=== PATIENT | female | born 1980 | race Caucasian/White ===

== ENCOUNTER 2019-01-31 23:13 | Emergency (ER) | payer SELFPAY ==
[2019-02-01] MEDS ORDERED: KETOROLAC TROMETHAMINE INJ 30 MG/ML VIAL IM ONE (00:21)
[2019-02-01] MEDS ORDERED: HYDROcodone 7.5MG/APAP 325MG 1 EA TAB PO ONE (00:21)
[2019-02-01] MEDS ORDERED: ONDANSETRON ODT 8 MG TAB SL ONE (00:22)
[2019-02-01 00:41] VITALS: TEMP 99.2
[2019-02-01 00:52] VITALS: O2SAT 98
[2019-02-01 01:04] VITALS: BP 145/77
--- NOTE | 2019-02-01 01:05 | ED.PDOC ---
History of Present Illness - General Chief Complaint: General Stated Complaint: pain, n/v Time Seen by Provider: 01/31/19 23:15 Source: patient Exam Limitations: no limitations - History of Present Illness Initial Comments: the patient is a 38-year-old female presenting to the emergency room secondary to right flank pain with associated nausea and vomiting. Pain restar amador after the patient had her right ureteral stent removed 2 hours prior. The patient sees Dr. Anton. the pain got severe enough that she had nausea and vomiting with it. She had 3 episodes. No blood and no bile. No fever. Pain is exactly like it was when she had the kidney stone originally. The ureteral stent was in place for 1 week. Lithotripsy was done and that the stent was placed. No dysuria currently. No diarrhea. The patient has not thrown up since arrival. Timing/Duration: 4-6 hours Severity: severe Improving Factors: nothing Worsening Factors: nothing Associated Symptoms: diaphoresis, loss of appetite, nausea/vomiting Allergies/Adverse Reactions: Allergies NO KNOWN ALLERGY Allergy (Verified 02/01/19 00:27) Home Medications: Ambulatory Orders Cephalexin 500 mg PO QID 02/01/19 Oxybutynin Chloride 5 mg PO DAILY 02/01/19 Sulfa/Trimeth 800/160 (Ds) Tab [Bactrim DS] 1 tablet PO DAILY 02/01/19 Tramadol HCl 50 mg PO Q4H PRN 02/01/19 Tramadol HCl 50 mg PO Q8HR PRN #20 tab 02/01/19 Review of Systems - Review of Systems Constitutional: States: no symptoms reported EENTM: States: no symptoms reported Respiratory: States: no symptoms reported Cardiology: States: no symptoms reported Gastrointestinal/Abdominal: States: abdominal pain, nausea, vomiting Genitourinary: States: no symptoms reported Musculoskeletal: States: back pain Skin: States: no symptoms reported Neurological: States: no symptoms reported Endocrine: States: no symptoms reported All other Systems: No Change from Baseline Past Medical History (General) - Patient Medical History Hx Seizures: No Hx Stroke: No Hx Dementia: No Hx Asthma: No Hx of COPD: No Hx Cardiac Disorders: No Hx Congestive Heart Failure: No Hx Pacemaker: No Hx Hypertension: Yes Hx Thyroid Disease: No Hx Diabetes: No Hx Gastroesophageal Reflux: No Hx Renal Disease: No Hx Cancer: No Hx of HIV: No Hx Hepatitis C: No Hx MRSA: No Surgical History: other - Vaccination History Hx Tetanus, Diphtheria Vaccination: Yes Hx Influenza Vaccination: Yes Hx Pneumococcal Vaccination: No - Social History Hx Tobacco Use: Yes Hx Chewing Tobacco Use: No Hx Alcohol Use: Yes - occ Hx Substance Use: No Hx Substance Use Treatment: No Hx Depression: No Hx Physical Abuse: No Hx Emotional Abuse: No Hx Suspected Abuse: No - Female History Patient is a Female of Child Bearing Age (10 -59 yrs old): Yes Patient : No Family Medical History - Family History Mother Living Status: Still Living Hx Family Diabetes: Yes Physical Exam - Physical Exam General Appearance: Alert, Anxious, No apparent distress Eye Exam: bilateral normal Ears, Nose, Throat: hearing grossly normal, normal pharynx Neck: full range of motion, supple Respiratory: lungs clear, normal breath sounds, no respiratory distress, no accessory muscle use Cardiovascular/Chest: normal peripheral pulses, regular rate, rhythm, no edema Peripheral Pulses: radial,right: 2+, radial,left: 2+ Gastrointestinal/Abdominal: soft, other - mild right-sided discomfort palpation. No rebound or peritoneal signs. 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 The patient has responded well to Zofran and Toradol. She'll be written for tramadol for as needed use for the next few days. She needs to increase her fluid intake and ambulate. She can use Motrin or aleve additionally as well. She needs to keep follow-up with her urologist. ER warnings are given for any significant worsening. [email or web address] Departure - Departure Clinical Impression: Colic, ureteral Disposition: Discharge to Home or Self Care Condition: Fair Departure Forms: ED Discharge - Pt. Copy, Patient Portal Self Enrollment Diet: low fat, low cholesterol Activity: increase activity as tolerated Prescriptions: Tramadol HCl 50 mg PO Q8HR PRN #20 tab PRN Reason: Moderate Pain Home Medications: Ambulatory Orders Cephalexin 500 mg PO QID 02/01/19 Oxybutynin Chloride 5 mg PO DAILY 02/01/19 Sulfa/Trimeth 800/160 (Ds) Tab [Bactrim DS] 1 tablet PO DAILY 02/01/19 Tramadol HCl 50 mg PO Q4H PRN 02/01/19 Tramadol HCl 50 mg PO Q8HR PRN #20 tab 02/01/19 Additional Instructions: the patient is a 38-year-old female presenting to the emergency room secondary to symptoms that are most consistent with ureteral colic after having had her ureteral stent removed 2 hours prior. The patient has responded well to Zofran and Toradol. She'll be written for tramadol for as needed use for the next few days. She needs to increase her fluid intake and ambulate. She can use Motrin or aleve additionally as well. She needs to keep follow-up with her urologist. ER warnings are given for any significant worsening.
== END 2019-02-01 01:10 | disposition home or self-care (01) ==
LOC: ER 23:13
DX: N23 Unspecified renal colic (principal); R11.2 Nausea with vomiting, unspecified; I10 Essential (primary) hypertension; Z98.890 Other specified postprocedural states; Z87.891 Personal history of nicotine dependence; Z87.442 Personal history of urinary calculi

== ENCOUNTER 2019-11-11 12:54 | Emergency (ER) | payer SELFPAY ==
[2019-11-11] MEDS ORDERED: SODIUM CHLORIDE 0.9% (FLUSH) 10 ML SYG IV PRN (13:08)
[2019-11-11] MEDS ORDERED: SODIUM CHLORIDE 0.9% 1000ML 1,000 ML IVS ONE (13:09)
--- NOTE | 2019-11-11 13:35 | ED.PDOC ---
History of Present Illness - General Chief Complaint: Respiratory Problem Time Seen by Provider: 11/11/19 13:08 Source: patient - History of Present Illness Initial Comments: 39-year-old female who presents with chief complaint of sore throat and fever. Onset of symptoms 4 days ago with progressive worsening. Reports constant 8/10 sore pain to the back of her throat with radiation to the left ear, worse with eating/drinking/swallowing, taking [id number] analgesics and gargles with little relief. Also reports intermittent subjective fevers and chills, reports T-max 100 F at home, also nausea without emesis and new onset watery diarrhea x2 this morning. Also reports intermittent cough productive for thin sputum. Denies any chest pain, dyspnea, headache, body aches, abdominal pain, urinary symptoms. No known recent sick contacts or COVID contacts. She works as a sitter for an elderly person. Allergies/Adverse Reactions: Allergies NO KNOWN ALLERGY Allergy (Verified 11/11/19 16:09) Home Medications: Ambulatory Orders Cephalexin 500 mg PO QID 02/01/19 Oxybutynin Chloride 5 mg PO DAILY 02/01/19 Sulfa/Trimeth 800/160 (Ds) Tab [Bactrim DS] 1 tablet PO DAILY 02/01/19 Tramadol HCl 50 mg PO Q4H PRN 02/01/19 Tramadol HCl 50 mg PO Q8HR PRN #20 tab 02/01/19 Review of Systems - Review of Systems Review of Systems: 11/11/19 13:54 As per HPI All other Systems: Reviewed and Negative Past Medical History (General) - Patient Medical History Hx Seizures: No Hx Stroke: No Hx Dementia: No Hx Asthma: No Hx of COPD: No Hx Cardiac Disorders: No Hx Congestive Heart Failure: No Hx Pacemaker: No Hx Hypertension: Yes Hx Thyroid Disease: No Hx Diabetes: No Hx Gastroesophageal Reflux: No Hx Renal Disease: No Hx Cancer: No Hx of HIV: No Hx Hepatitis C: No Hx MRSA: No - Vaccination History Hx Tetanus, Diphtheria Vaccination: Yes Hx Influenza Vaccination: Yes Hx Pneumococcal Vaccination: No - Social History Hx Tobacco Use: Yes Hx Chewing Tobacco Use: No Hx Alcohol Use: Yes - occ Hx Substance Use: No Hx Substance Use Treatment: No Hx Depression: No Hx Physical Abuse: No Hx Emotional Abuse: No Hx Suspected Abuse: No - Female History Patient : No Family Medical History - Family History Mother Living Status: Still Living Hx Family Diabetes: Yes Physical Exam - Physical Exam General Appearance: Alert, Comfortable, No apparent distress, Obese Eye Exam: bilateral normal Ears, Nose, Throat: hearing grossly normal, other - Moderate erythema to posterior oropharynx with small faint bilateral white exudate, no tonsillar swelling noted. Bilateral TMs normal on inspection Neck: full range of motion, supple, normal inspection, lymphadenopathy (R), lymphadenopathy (L) Respiratory: lungs clear, normal breath sounds, no respiratory distress, no accessory muscle use Cardiovascular/Chest: normal peripheral pulses, regular rate, rhythm, no edema, no gallop, no JVD, no murmur Peripheral Pulses: radial,right: 2+, radial,left: 2+ Gastrointestinal/Abdominal: non tender, soft, no organomegaly Back Exam: normal inspection, no CVA tenderness, no vertebral tenderness Extremity: normal range of motion, non-tender, normal inspection, no pedal edema, no calf tenderness, normal capillary refill 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 -Labs reveal strep positive. Otherwise pretty unremarkable. Chest x-ray shows no acute processes. -Discussed diagnosis of strep pharyngitis and treatment options. Patient opts for Bicillin shot in the ED, will give 1,200,000 units IM x1. Plan to discharge to home with work note. UA and respiratory panel remain pending. 11/11/19 16:00 -UA unremarkable. Respiratory panel negative, including COVID-19 testing. Tian Turner MD Billing #[id number] Laboratory Results - last 24 hr 11/11/19 11/11/19 11/11/19 13:20 13:20 13:20 WBC 8.6 RBC 4.65 Hgb 13.3 Hct 39.5 MCV 85.0 MCH 28.6 MCHC 33.7 RDW 13.8 Plt Count 322 MPV 7.3 L Absolute Neuts (auto) 6.20 Absolute Lymphs (auto) 1.60 Absolute Monos (auto) 0.40 Absolute Eos (auto) 0.30 Absolute Basos (auto) 0.00 Neutrophils % 71.8 Lymphocytes % 18.7 L Monocytes % 5.1 Eosinophils % 3.8 Basophils % 0.6 Sodium 139 Potassium 3.8 Chloride 106 Carbon Dioxide 25 Anion Gap 11.8 L BUN 10 Creatinine 0.67 BUN/Creatinine Ratio 14.9 Random Glucose 106 H Serum Osmolality 277.0 Calcium 9.0 Total Bilirubin 0.3 AST 24 ALT 33 Alkaline Phosphatase 73 Serum Total Protein 7.5 Albumin 3.7 Globulin 3.8 H Albumin/Globulin Ratio 1.0 L Serum HCG, Qual Negative Urine Color Urine Appearance Urine pH Ur Specific Jewell Urine Protein Urine Glucose (UA) Urine Ketones Urine Blood Urine Nitrite Urine Bilirubin Urine Urobilinogen Ur Leukocyte Esterase Urine RBC Urine WBC Ur Epithelial Cells Amorphous Sediment Urine Bacteria Urine Mucus Group A Strep Rapid 11/11/19 11/11/19 13:45 14:12 WBC RBC Hgb Hct MCV MCH MCHC RDW Plt Count MPV Absolute Neuts (auto) Absolute Lymphs (auto) Absolute Monos (auto) Absolute Eos (auto) Absolute Basos (auto) Neutrophils % Lymphocytes % Monocytes % Eosinophils % Basophils % Sodium Potassium Chloride Carbon Dioxide Anion Gap BUN Creatinine BUN/Creatinine Ratio Random Glucose Serum Osmolality Calcium Total Bilirubin AST ALT Alkaline Phosphatase Serum Total Protein Albumin Globulin Albumin/Globulin Ratio Serum HCG, Qual Urine Color Yellow Urine Appearance Cloudy Urine pH 5.5 Ur Specific Jewell >= 1.030 Urine Protein Negative Urine Glucose (UA) Negative Urine Ketones Negative Urine Blood Trace-lysed H Urine Nitrite Negative Urine Bilirubin Small H Urine Urobilinogen 1.0 Ur Leukocyte Esterase Trace H Urine RBC 3-5 H Urine WBC 0-1 Ur Epithelial Cells 20-30 Amorphous Sediment 3+ Urine Bacteria 1+ Urine Mucus Large Group A Strep Rapid Positive - EKG/XRAY/CT XRAY: chest - No acute processes per my read Departure - Departure Clinical Impression: Streptococcal pharyngitis Time of Disposition: 14:29 Disposition: Discharge to Home or Self Care Condition: Fair Departure Forms: ED Discharge - Pt. Copy, ED Discharge - Work Release, Patient Portal Self Enrollment Instructions: Sore Throat, Adult (DC) Diet: resume usual diet Activity: increase activity as tolerated Home Medications: Ambulatory Orders Cephalexin 500 mg PO QID 02/01/19 Oxybutynin Chloride 5 mg PO DAILY 02/01/19 Sulfa/Trimeth 800/160 (Ds) Tab [Bactrim DS] 1 tablet PO DAILY 02/01/19 Tramadol HCl 50 mg PO Q4H PRN 02/01/19 Tramadol HCl 50 mg PO Q8HR PRN #20 tab 02/01/19 Additional Instructions: Remain well-hydrated and advance her diet and activity level as tolerated. You may continue to take [id number] medication such as Tylenol and ibuprofen as needed for pain or fevers. You may also take [id number] Chloraseptic sore throat spray and warm salt water gargles as needed for sore throat. Return to the ED if your symptoms worsen or other concerning symptoms develop such as muffled voice, trouble maintaining oral secretions, shortness of breath, etc. Follow-up with your primary care physician for repeat evaluation in the next 1 t o 2 weeks or sooner as needed.
[2019-11-11] MEDS ORDERED: KETOROLAC TROMETHAMINE INJ 30 MG/ML VIAL IV ONE (13:50)
--- NOTE | 2019-11-11 14:03 | RAD ---
EXAM DESCRIPTION: Chest,1 View CLINICAL HISTORY: 39 years Female fevers, weakness COMPARISON: None TECHNIQUE: Portable AP view of the chest is obtained. FINDINGS IN THE CHEST: Heart: Allowing for magnification factors related to AP portable technique and body habitus, the heart is normal in size and configuration. Vasculature: [] There is no evidence of aortic aneurysm or acute findings. The pulmonary vascularity is normal. Mediastinum: No evidence of mass or adenopathy. Lungs: There is no focal consolidation in the lungs. Pleura: There are no pleural effusions. There are no pneumothoraces. Osseous structures: No evidence of acute fracture, osteolytic lesions or osteoblastic lesions. Tubes and catheters: None Chest wall: Unremarkable. Visualized Abdomen: Unremarkable. IMPRESSION: No significant [] radiographic abnormalities in the chest. Remainder of findings as described above. Electronically signed by: Ilene Turner MD 11/11/2019 2:02 PM CDT
[2019-11-11] MEDS ORDERED: PENICILLIN BENZATHINE 1.2 MU 1.2 MU/2 ML SYG IM ONE (14:27)
[2019-11-11 16:09] VITALS: BP 120/77; TEMP 98.7; O2SAT 98
== END 2019-11-11 15:45 | disposition home or self-care (01) ==
LOC: ER 12:54
DX: J02.0 Streptococcal pharyngitis (principal); R50.9 Fever, unspecified; R19.7 Diarrhea, unspecified; E66.9 Obesity, unspecified; F17.200 Nicotine dependence, unspecified, uncomplicated; I10 Essential (primary) hypertension
CPT/HCPCS: 36415; 71045; 80053; 81001; 84703; 85025; 87635; 87880; J0561; J1885; J7030